=== PATIENT | female | born 1970 | race African-American/Black ===

== ENCOUNTER 2016-08-11 18:49 | Emergency (ER) | payer OTHER ==
[~2016-08-11 18:49] MED LIST: CHANTIX1 PO; CYMBALTA60 PO; GLUCPH PO; HYZAAR 100/25 T1 TAB PO; TEKTURNA300 MG PO
== END 2016-08-11 19:05 | disposition home or self-care (01) ==
LOC: ER 18:49
DX: M79.1 Myalgia (principal); J32.9 Chronic sinusitis, unspecified; F17.200 Nicotine dependence, unspecified, uncomplicated; I10 Essential (primary) hypertension; E11.9 Type 2 diabetes mellitus without complications; Z79.84 Long term (current) use of oral hypoglycemic drugs; Z79.899 Other long term (current) drug therapy
CPT/HCPCS: 71020; 93005; 99284